=== PATIENT | female | born 1970 | race Caucasian/White ===

== ENCOUNTER → 2017-10-15 09:18 | Outpatient (CLI) | payer BC, SELFPAY ==
--- NOTE | 2017-10-15 09:21 | MM_ITS ---
Bilateral screening mammogram: CAD mammography screening History: There is no personal or family history of breast cancer Today's studies are compared to digital mammograms 10/05/2016 and 09/23/2015 Findings: There is a markedly dense and heterogenic parenchymal pattern lessening the sensitivity of mammography. The findings are bilateral and symmetrical. There is no suspicious lesion in either breast and no suspicious microcalcifications. Impression: Stable mammogram. No evidence of malignancy. Recommend routine yearly screening follow-up. BI-RADS CATEGORY: 1 Negative recommend 1 yearfollow-up (A letter has been sent to the patient regarding the results of the study.)
== END ==
PROVIDERS: Family Provider Family Medicine; PCP Family Medicine; Visit Provider Obstetrics & Gynecology
DX: Z12.31 Encounter for screening mammogram for malignant neoplasm of breast (principal)
CPT/HCPCS: 77067

== ENCOUNTER → 2017-11-19 09:36 | Outpatient (CLI) | payer BC, SELFPAY ==
[2017-11-19 10:49] LABS: Thyroid Stimulating Hormone 0.83 uIU/ml (0.358-3.740)
[2017-11-20 18:31] LABS: Vitamin B12 1001 pg/mL (232-1245)
== END ==
PROVIDERS: Visit Provider Physician Assistant
DX: E53.8 Deficiency of other specified B group vitamins (principal); E03.9 Hypothyroidism, unspecified
CPT/HCPCS: 36415; 82607; 84443

== ENCOUNTER → 2018-07-20 09:42 | Outpatient (CLI) | payer BC, SELFPAY ==
--- NOTE | 2018-07-20 09:46 | XR_ITS ---
XR hand LT min 3V HISTORY: Left fifth finger pain. 4 weeks ITS.REASON: LEFT FINGER PAIN ORDERING PHYSICIAN: PRAKASH Alvarado PATIENT AGE: 48 years COMPARISON: [None TECHNIQUE: PA, Oblique and Lateral Hand FINDINGS: Left hand appears intact with no prominent findings. No fracture or dislocation. No lytic or blastic change. There is normal mineralization.. There is some early narrowing and hypertrophic changes at the IP joint of thumb, mild sharpening at the margins of the joint with some early hypertrophic changes anteriorly Otherwise the DIP and PIP joints appear to be well maintained specifically here at the fifth finger we see no remarkable arthritic changes. There may be some minor soft tissue swelling questioned evident. Fifth metacarpal is intact with benign bone island at head of fifth metacarpal. The metacarpal and wrist on the views unremarkable. IMPRESSION: ----- No fracture nor acute findings at left hand. . Specifically Fifth finger appears intact & unremarkable Only note some very early degenerative arthritic changes at the joint thumb
== END ==
PROVIDERS: PCP Family Medicine; Visit Provider Physician Assistant
DX: M79.645 Pain in left finger(s) (principal)
CPT/HCPCS: 73130

== ENCOUNTER → 2018-11-21 09:18 | Outpatient (CLI) | payer BC, SELFPAY ==
--- NOTE | 2018-11-21 09:22 | MM_ITS ---
MM Dig screening mamm BI w/CAD ORDERING PHYSICIAN : Luis Fernando Sanchez MD PATIENT AGE: 48 years GENDER: Female COMPARISON: Multiple prior digital mammograms utilized.: October 2017, September 2016, 2015, 2014, 2013 INDICATION: ITS.Routine: screening. No hormones. No new complaints. Previous breast biopsy, 2015 = benign fibroadenoma Noncontributory family history TECHNIQUE: Standard CC and MLO images were obtained. R2 CAD reviewed. FINDINGS: Dense breast bilaterally decreased sensitivity of mammography . Dense somewhat nodular heterogeneous appearance again observed, similar to previous study. I see no dominant or suspicious mass. No suspicious calcifications. No new areas of significant concern. RIGHT BREAST: Area Labeled A: On today's MLO view there is slightly denser area at the superior right breast spanning a 12 x 1 x 15 mm on MLO view. On cc view I suspect there and the 9-11 o'clock position.Suggest the patient return for spot views of this area as well as ultrasound right breast. This area labeled a thick Looking over Previous studies, would note 2014 ultrasound on which hypoechoic area was seen at this region-. Appears that there may been a Oct 2014 biopsy of this region by Dr. Liu, which confirmed a fibroadenoma. Nonetheless repeat survey at this point several years later suggested to further evaluate. Area Labeled B. : A few Small new nonspecific calcifications at site labeled B also noted. These are best seen on today's further lateral on standard cc view but can only other views..-& Likely reside at 9-10 o'clock position laterally right.-These will benefit from cc and 90 degree magnification views in the patient returns as well LEFT BREAST:No new areas significant concern. Follow-up in one year recommended. IMPRESSION: 1. Dense breast bilaterally decreased sensitivity mammography. 2. Right breast: .... Area A: Slight increased density superior right breast on today's mammogram, could merely reflect summation shadow; but with overall appearance suggests patient return for Spot View & Ultrasound. (Suspect the previously imaged/biopsied [id number], may account for this area relative greater density superior right breast, but would benefit from ultrasound follow-up .) .... Area B: Small nonspecific grouping of new calcifications at area labeled B.. More likely benign but slightly variable, would benefit from spot views in the patient returns 3. Left breast.: Stable. Follow-up in one year . BI-RADS Category: 0 Need Additional Imaging Evaluation RECOMMENDED FOLLOW-UP: IMM - IMMEDIATE FOLLOW-UP RECOMMENDED (A letter has been sent to the patient regarding results of the study.)
== END ==
PROVIDERS: PCP Family Medicine; Visit Provider Obstetrics & Gynecology
DX: Z12.31 Encounter for screening mammogram for malignant neoplasm of breast (principal)
CPT/HCPCS: 77067

== ENCOUNTER → 2018-11-25 12:55 | Outpatient (CLI) | payer BC, SELFPAY ==
--- NOTE | 2018-11-25 13:02 | US_ITS ---
US thyroid HISTORY: Follow-up thyroid nodules ITS.REASON: MULTINODULAR GOITER ORDERING PHYSICIAN: PRAKASH Alvarado PATIENT AGE: 48 years Comparison: 05/09/2015 FINDINGS: The isthmus is enlarged measuring 5 mm in thickness The right lobe is 4.7 x 1.4 x 2.3 cm with heterogeneous echogenicity. Hypoechoic nodule is present in the upper pole at 10 mm unchanged. Hypoechoic nodule is present in the mid polar region posteriorly at 11 x 7 mm previously 18 x 7 mm. There is an isoechoic nodule in the mid polar region at 8 mm unchanged. The left lobe is 4.8 x 1.5 x 1.6 cm showing heterogeneous echogenicity with a multinodular configuration. There is diffuse heterogeneous echogenicity. It is difficult to ascertain definite nodules. There is a questionable 12 mm nodule in the lower pole probably not significant changed considering the difference in scanning technique. IMPRESSION: No change multinodular goiter
== END ==
PROVIDERS: PCP Physician Assistant; Visit Provider Physician Assistant
DX: E04.2 Nontoxic multinodular goiter (principal)
CPT/HCPCS: 76536

== ENCOUNTER → 2018-12-07 14:36 | Outpatient (CLI) | payer BC, SELFPAY ==
--- NOTE | 2018-12-07 14:37 | MM_ITS ---
MM Dig mamm DX unilat RT CAD, US breast RT complete Ordering Physician: Luis Fernando Sanchez MD Patient Age: 48 years Female COMPARISON: November 21, 2018, screening mammogram. October 2017, September 2016 2016 INDICATION: Further evaluation of small calcifications upper-outer quadrant as well as accentuated density/nodularity superior right breast on recent screening mammogram DIAGNOSTIC MAMMOGRAM, WITH SPOT VIEWS. CC and MLO spot views the nodule labeled A; also spot magnification CC and 90 degree views of small calcifications upper-outer quadrant at area labeled B. Small cluster calcifications is seen to slightly better advantage, 9 o'clock position right breast.... Minimal small grouping but magnification views demonstrate Slight variability of forms and slight progression since prior study. Favor more likely benign calcifications, but stereotactic biopsy origin. Suggested since it developed since last year. A reasonable alternative if preferred by the patient is a follow-up study in 6 months. ULTRASOUND RIGHT BREAST. Including axillary survey Ultrasound entire breast including axillary survey was performed. COMPARISON is made to previous ultrasound from 2015. 12:00: Focal ovoid hypoechoic area at 12:00 again identified. However on today's study, favor it is a debris-filled cyst as there is back wall enhancement and through transmission better delineated today.. This measures 5.7 mm it appears to be a benign ultrasound feature that can be followed safely. 9:00 small hypoechoic ovoid area this area also measures up to 5.7 mm maximally. Benign appearance likely cluster of apocrine cysts. Scattered benign axillary lymph nodes. IMPRESSION: 1. Magnification spot views right breast: Small grouping of variable calcifications has developed at upper-outer quadrant right breast. More likely benign features such as adenosis but stereotactic biopsy recommended further evaluate. Reasonable alternatively approach would be 6 month follow-up mammogram 2. . The area relative density superior right breast again on right mammogram less evident but warrants follow-up in this dense breasts. Likely dense fibroglandular elements. Suggest right mammogram and right breast ultrasound 6 months to further confirm stability. This area of dense breast tissue is somewhat difficult to evaluate & would benefit from follow-up. 3. Today's right breast Ultrasound reveals no suspicious densities. Small benign-appearing areas on ultrasound at 12:00 and 9:00 noted and not of concern . BI-RADS Category: 4 minimal Suspicious Abnormality-Biopsy Considered RECOMMENDED FOLLOW-UP: BIO - BIOPSY RECOMMENDED Stereotactic biopsy of warranted. 6 month follow-up here would be reasonable alternative A letter has been sent to the patient regarding results of the study.)
== END ==
PROVIDERS: PCP Family Medicine; Visit Provider Obstetrics & Gynecology
DX: R92.8 Other abnormal and inconclusive findings on diagnostic imaging of breast (principal)
CPT/HCPCS: 76641; 77065

== ENCOUNTER → 2018-12-28 09:26 | Outpatient (CLI) | payer BC, SELFPAY ==
--- NOTE | 2018-12-28 09:29 | MM_ITS ---
MM stereotactic loc RT, MM clip placement RT Digital spot compression, ORDERING PHYSICIAN: Luis Fernando Sanchez MD PATIENT AGE: 48 years Comparison: 12/07/2018 INDICATION for exam: Abnormal mammogram with suspicious microcalcifications. PROCEDURE: The patient was given 1 mg of Xanax, Lortab 5 mg, and analgesia and minor sedation. The patient was placed on the stereotactic table and the abnormality was localized in the most appropriate projection. Initially, the calcifications were localized in the craniocaudal projection. The breast was prepped in the routine manner, with sterile prep and the overlying skin anesthetized. A 3 to 4 mm skin incision was performed and the 9 gauge sorus vacuum-assisted core biopsy needle was advanced to the region of the calcification. Pre- and post fire images were obtained. After adequate positioning relative to the calcifications was ensured, multiple biopsies were obtained in the region of the calcifications specifically. Despite multiple biopsies and repositioning of the needle, no calcifications were evident within the tissue specimen. This was labeled specimen A and sent for pathological analysis. The patient needed to go to the bathroom and was then allowed to get up and go to the bathroom and then the calcifications were localized in the lateral projection. The breast was prepped in the routine manner, with sterile prep and the overlying skin anesthetized. A 3 to 4 mm skin incision was performed and the 9 gauge sorus vacuum-assisted core biopsy needle was advanced to the region of the calcification. Pre- and post fire images were obtained. After adequate positioning relative to the calcifications was ensured, multiple biopsies were obtained in the region of the calcifications specifically. This time there were calcifications noted within the tissue specimen. This specimen was labeled as B The core biopsies obtained were sent for specimen mammography. After the calcifications were indeed identified on the second positioning specimen mammogram, the procedure was terminated. The patient tolerated the procedure well without complications. Specimen was sent for pathologic analysis. A tiny titanium nonferromagnetic MicroMark was positioned through the mammotome needle into the biopsy site. Postbiopsy mammogram: Previously noted calcifications are no longer apparent and have been removed. A clip is present at the expected location at 3:00 with post biopsy changes at this region. Pathology: Please see pathologist report for details. Specimen A: Isolated atypical lobular hyperplasia with fibrocystic change. 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 Calcifications were not identified were definitely present on the tissue specimen and may have been lost during processing. IMPRESSION: Successful stereotactic directed biopsy of the right breast demonstrating lobular carcinoma in situ and atypical lobular hyperplasia. 2 different specimens were obtained however, they're both felt to be in the same area one demonstrating calcifications in the other not demonstrating calcifications on the specimen radiograph. Recommendations: Surgical consult
== END ==
PROVIDERS: PCP Family Medicine; Visit Provider Obstetrics & Gynecology
DX: R92.8 Other abnormal and inconclusive findings on diagnostic imaging of breast (principal); C50.911 Malignant neoplasm of unspecified site of right female breast
CPT/HCPCS: 19081; 77065

== ENCOUNTER → 2019-02-02 14:10 | Outpatient (CLI) | payer BC, SELFPAY ==
[2019-02-02 15:57] LABS: Thyroid Stimulating Hormone 6.75 uIU/ml (0.358-3.740)
== END ==
PROVIDERS: Visit Provider Physician Assistant
DX: E03.9 Hypothyroidism, unspecified (principal)
CPT/HCPCS: 36415; 84439; 84443

== ENCOUNTER → 2019-07-26 13:55 | Outpatient (CLI) | payer BC, SELFPAY ==
--- NOTE | 2019-07-26 13:57 | US_ITS ---
PROCEDURE: US TRANSVAGINAL CLINICAL INDICATION: PELVIC PAIN Left-sided pelvic pain COMPARISON: PTV US PELVIS-TRANSVAGINAL ONLY from 07/05/2013 FINDINGS: Status post hysterectomy. The right ovary is 1.6 x 1.9 cm and contains a 1.3 cm cyst. The left ovary is 3.2 x 1.9 cm and contains a 1.3 cm cyst. The vaginal cuff has an unremarkable appearance. No cul-de-sac fluid. IMPRESSION: Prior hysterectomy with small bilateral ovarian cysts Dictated by: Fer Liu MD 07/26/2019 19:32 Electronically signed by Fer Liu MD in [place] 07/26/2019 19:32
== END ==
PROVIDERS: PCP Family Medicine; Visit Provider Physician Assistant
DX: R10.2 Pelvic and perineal pain (principal)
CPT/HCPCS: 76830

== ENCOUNTER → 2021-05-22 08:35 | Outpatient (CLI) | payer BC, SELFPAY | PROVIDERS: PCP Family Medicine; Visit Provider Nurse Practitioner | DX: Z11.52 Encounter for screening for COVID-19 (principal) | CPT/HCPCS: C9803; U0003; U0005 ==

== ENCOUNTER → 2021-06-25 13:32 | Outpatient (CLI) | payer BC, SELFPAY ==
--- NOTE | 2021-06-25 13:35 | US_ITS ---
PROCEDURE: US THYROID CLINICAL INDICATION: THYROID NODULE COMPARISON: US THY US thyroid from 11/25/2018 FINDINGS: Right lobe: 4.5 x 2 x 1.3 cm. There is diffuse heterogeneous echogenicity. 12 x 8 mm heterogeneous nodule in the upper pole unchanged. In the lower pole there is a 7 mm slightly hyperechoic nodule. This is unchanged. Left lobe: 3.9 x 1.3 x 1.5 cm. The diffuse heterogeneous echogenicity. No discrete nodule delineated. Questionable 9 mm nodule in the mid polar region. Isthmus: Thickened at 4 mm. Additional findings: There is diffuse heterogeneous echogenicity of the thyroid gland making subtle nodule demonstration difficult. IMPRESSION: Overall no change diffuse heterogeneous echogenicity of the thyroid with questionable bilateral nodules not significantly changed. Dictated by: Fer Liu MD 06/25/2021 19:03 Fer Liu MD in [place] 06/25/2021 19:03
== END ==
PROVIDERS: PCP Physician Assistant; Visit Provider Physician Assistant
DX: E04.1 Nontoxic single thyroid nodule (principal)
CPT/HCPCS: 76536

== ENCOUNTER 2021-09-11 10:05 | Emergency (ER) | payer BC, SELFPAY ==
[2021-09-11 10:26] VITALS: BP 141/87; PULSE 82; RESP 18; TEMP 36.7; O2SAT 99; BMI 33.7
--- NOTE | 2021-09-11 11:13 | HMH.EDUTC ---
[facility] – [place], [place] Disposition Clinical Impression: Exposure to COVID-19 virus Sinusitis Qualifiers: Sinusitis location: unspecified location Chronicity: acute Recurrence: non-recurrent Qualified Code(s): J01.90 - Acute sinusitis, unspecified Disposition: Home, Self-Care Condition on Discharge: Good Instructions: DI for Sinusitis, DI for COVID-19 (Suspected or Confirmed ), Preventing the Spread of Coronavirus Discharge Instructions Additional Instructions: Drink plenty of fluids. Take tylenol or ibuprofen for pain or fever. Take the medications as directed. Follow up with your regular doctor. GO TO THE ER FOR ANY WORSENING SYMPTOMS Quarantine until you know the results of your covid-19 test. If it is positive, the health department should call you and give you further instructions about your length of Quarantine and other things. Notify your school or workplace of your results and follow their instructions regarding return to work/school. The cough medication (promethazine dm) will make you drowsy, so don't drive or operate heavy machinery after taking it. You probably won't need this unless you actually have covid-19. Prescriptions: Ondansetron [Zofran 4mg ODT] 4 mg PO Q8HP PRN #20 tab PRN Reason: Nausea Transmission Status: Received by [id number] Ondansetron [Zofran 4mg ODT] 4 mg PO Q8HP PRN #20 tab PRN Reason: Nausea Transmission Status: Received by [id number] methylPREDNISolone [Medrol] 4 mg PO DIRECTED 6 Days #21 packet Transmission Status: Received by [id number] Azithromycin [Z-Parker 250mg Tab*] 250 mg PO UD DOSE PK #6 tab Transmission Status: Received by [id number] Referrals: Teddy Cao MD [Primary Care Provider] - Time of Disposition: 11:57 Medical Decision Making - Medical Records Medical records reviewed: No: I reviewed the patient's medical records. - Erasmo Inquiry Pt receiving controlled substance: No Vital Signs: 09/11/21 10:26 09/11/21 12:04 Temperature 98.1 F 98.1 F Temperature Source Oral Pulse Rate 82 Pulse Rate [Left] 82 Respiratory Rate 18 18 Blood Pressure 141/87 H Blood Pressure [Right Arm] 141/87 H Blood Pressure Mean [Right Arm] 105 02 Sat by Pulse Oximetry 99 - Lab Data Lab results reviewed: Yes: I reviewed the patient's lab results. Lab Results 09/11/21 10:29: Strep Scn Rapid Clinic Positive A Orders (Tests/Meds): ED MEDICATIONS Discontinued Medications Generic Name Dose Route Start Last Admin Trade Name Roberta PRN Reason Stop Dose Admin Penicillin G Benzathine 1,200,000 unit 09/11/21 12:01 09/11/21 12:03 Penicillin G Benzathine 1,200,000 Units/2ml Syringe IM 09/11/21 12:02 1,200,000 unit ONCE ONE Administration [facility] – [place], [place] HPI - General Stated complaint: congestion Time Seen by Provider: 09/11/21 11:13 Mode of Arrival: Ambulatory Source of Information: Patient Limitations: No Limitations Description of Symptoms (Recalled from Triage Doc. by RN): pt c/o a sore throat and sinus congestion/drainage. tested pos. for covid two days ago. HEENT Symptoms (Recalled from RN notes): Yes Resp Symptoms (Recalled from RN notes): No Skin Symptoms (Recalled from RN notes): No MS Symptoms (Recalled from RN notes): No Functional Status (Recalled from RN notes): wnl - History of Present Illness Provider Complaint: She states that she has been having sinus congestion and nasal congestion for the past 2 days. She denies significant chest congestion. Her tested positive for covid-19 yesterday. She has been fully vaccinated against covid-19. She denies fever or chills or body aches so far. - Related Data Home Medications Medication Instructions Recorded Confirmed beclomethasone dipropionate 80 2 spray INTRANASAL DAILY 06/23/18 01/17/20 mcg/actuation nasal HFA inhaler levocetirizine 5 mg tablet 5 mg PO QHS 06/23/18 01/17/20 montelukast 10 mg tablet 10 mg
[2021-09-11 11:59] LABS: UTC Strep Screen (Rapid) Positive (Negative)
[2021-09-11 12:04] VITALS: BP 141/87; PULSE 82; RESP 18; TEMP 36.7
== END 2021-09-11 12:27 | disposition home or self-care (01) ==
PROVIDERS: Emergency Provider Nurse Practitioner Family; PCP Family Medicine
DX: J01.90 Acute sinusitis, unspecified (principal); U07.1 COVID-19; E03.9 Hypothyroidism, unspecified
CPT/HCPCS: 87880; 99203; C9803; G0463; J0561; U0003; U0005

== ENCOUNTER → 2021-09-15 09:05 | Outpatient (CLI) | payer BC, SELFPAY | PROVIDERS: PCP Family Medicine; Visit Provider Nurse Practitioner | DX: U07.1 COVID-19 (principal) | CPT/HCPCS: C9803; U0003; U0005 ==

== ENCOUNTER → 2021-09-17 10:33 | Outpatient (CLI) | payer BC, SELFPAY | PROVIDERS: Visit Provider Nurse Practitioner | DX: U07.1 COVID-19 (principal) | CPT/HCPCS: C9803; U0003; U0005 ==

== ENCOUNTER → 2023-09-02 14:11 | Outpatient (CLI) | payer BC, SELFPAY ==
--- NOTE | 2023-09-02 14:19 | XR_ITS ---
FINAL REPORT CLINICAL HISTORY: ABN FINDINGS ON SKULL/HEAD EXAM FINDINGS: SKULL 4 views were obtained. There is asymmetric scalp thickening near the vertex on the left. No underlying bony abnormality is seen. There is no radiopaque foreign body. No bony erosion is seen. IMPRESSION: Scalp thickening near the vertex on the left with no underlying bony abnormality. Reviewed, Interpreted and Dictated by Sean Hoffman MD Transcribed by Valerie Figueredo Authenticated and [facility]
== END ==
LOC: RAD 14:12
PROVIDERS: PCP Physician Assistant; Visit Provider Physician Assistant
DX: R68.89 Other general symptoms and signs (principal)
CPT/HCPCS: 70250

== ENCOUNTER 2023-09-08 16:35 | Outpatient (CLI) | payer BC, SELFPAY ==
[2023-09-08 18:44] LABS: Free T4 (Free Thyroxine) 1.34 ng/dl (0.78-2.19)
[2023-09-08 18:59] LABS: Thyroid Stimulating Hormone 5.71 uIU/mL (0.465-4.68)
== END 2023-09-08 23:59 ==
LOC: LAB 16:36
PROVIDERS: PCP Physician Assistant; Visit Provider Physician Assistant
DX: E03.9 Hypothyroidism, unspecified (principal)
CPT/HCPCS: 36415; 84439; 84443

== ENCOUNTER 2023-09-14 14:43 | Outpatient (CLI) | payer BC, SELFPAY ==
--- NOTE | 2023-09-14 14:51 | US_ITS ---
FINAL REPORT CLINICAL HISTORY: THYROID NODULE COMPARISON: 06/25/2021 FINDINGS: THYROID ULTRASOUND: The right lobe of the thyroid is of heterogeneous echotexture without discrete nodule seen. It measures 3.8 x 1.5 x 1.8 cm in size. The left lobe of the thyroid is also of heterogeneous echotexture without a discrete nodule. The left lobe of the thyroid measures 4.1 x 1.5 x 1.5 cm in size. The isthmus measures 6 mm in size. IMPRESSION: Diffusely heterogeneous thyroid gland bilaterally, with discrete nodules difficult to identify. The overall appearance is not significantly changed since the prior ultrasound of June 2021. Reviewed, Interpreted and Dictated by Russ Haas III, MD Transcribed by Char Garay Authenticated and [facility]
== END 2023-09-14 23:59 ==
PROVIDERS: PCP Physician Assistant; Visit Provider Physician Assistant
DX: E04.1 Nontoxic single thyroid nodule (principal)
CPT/HCPCS: 76536

== ENCOUNTER 2024-10-23 09:53 | Day surgery (SDC) | payer BC, SELFPAY ==
[2024-10-17 16:06] VITALS: BMI 33.9
[2024-10-23 10:11] VITALS: BP 137/77; PULSE 72; RESP 18; TEMP 36.5; O2SAT 98
[2024-10-23] MEDS: LACTATED RINGERS 1000ML 1,000 ML 50 ML IV (10:24)
--- NOTE | 2024-10-23 11:19 | P.HP_ITS ---
History of Present Illness *Admission Date: 10/23/24 *Reason for visit:: GERD/dysphagia and surveillance (personal history of polyps) *History of present illness: Mrs. Martel is a 54-year-old female who is here for diagnostic EGD secondary to chronic GERD with some dysphagia and colonoscopy for surveillance (secondary to personal history of adenomatous polyps) and family history. The examination is deemed medically necessary for EGD and colonoscopy. The patient has been seen, interviewed and examined prior to the procedure by both myself and the anesthesia provider. [facility] Disclaimer: The information contained in this section may have been updated after the patient was seen, as this information can be updated by other users. Medical History (Updated 10/23/24 @ 11:30 by Brendan Elder II, MD) Breast cancer Surgical History (Updated 10/23/24 @ 10:17 by Xuan Vidal RN) History of partial hysterectomy History of esophagogastroduodenoscopy (EGD) History of colonoscopy H/O lumpectomy Family History (Updated 10/23/24 @ 10:15 by Xuan Vidal RN) Other Colon cancer Social History (Updated 10/23/24 @ 10:17 by Xuan Vidal RN) Smoking Status: Never smoker alcohol intake: never substance use type: denies use current occupational status: employed Travel in the last 8 weeks: None caffeine: No Have you lived/traveled outside [place] in past 30 days?: No Contact w/someone who lives/traveled outside US past 30 days?: No Exposure to someone with infectious disease in past 14 days?: No Do you have a fever (greater than 100.4 F or 38 C)?: No Have you tested positive for COVID-19: No Exposed to someone with COVID-19 in past 14 days?: Yes Do you have a sore throat?: No Do you have a cough?: No Do you have any weakness?: No Are you experiencing any nausea/vomitting?: No Do you have any diarrhea?: No Are you experiencing any unusual bleeding?: No Do you have any muscle aches/pain?: No Do you have any abdominal pain?: No Are you experiencing loss of taste or smell?: No Other Medical History Have you received the Pneumonia Vaccine: No Review of Systems Review of Systems Review of systems (narrative): Negative *Cardiovascular Comments: Negative *Gastrointestinal Comments: Negative *Genitourinary Comments: Negative *Musculoskeletal Comments: Negative *Neurologic Comments: Negative Meds Home Medications and Allergies Home Medications ?Medication ?Instructions ?Recorded ?Confirmed ?Type levocetirizine 5 mg tablet 5 mg PO QHS 06/23/18 10/23/24 History (Allergy Relief (levocetirizine)) montelukast 10 mg tablet 10 mg PO QPM 06/23/18 10/23/24 History cholecalciferol (vitamin D3) 625 25,000 unit PO QWEEK 05/09/19 10/23/24 History mcg (25,000 unit) capsule vitamin B complex (B 1 tab PO DAILY 05/09/19 10/23/24 History Complex-Vitamin B12 tablet) levothyroxine 112 mcg tablet 112 mcg PO DAILY 08/25/19 10/23/24 History fluticasone propionate 50 50 mcg intranasal NEEDED PRN 08/17/24 10/23/24 History mcg/actuation nasal allergies spray,suspension omeprazole 40 mg capsule,delayed 40 mg PO ONCE 08/17/24 10/23/24 History release triamterene 37.5 1 tab PO DAILY 08/17/24 10/23/24 History mg-hydrochlorothiazide 25 mg tablet [id number] 140 gram-sod sulfate 9 500 ml PO .COMPLEX colonscopy #3 ea 10/12/24 10/23/24 Rx gram-NaCl 5.2gram-KCl-C oral pwdr packs (Plenvu) New Prescriptions to Start Prescriptions: Allergies Allergy/AdvReac Type Severity Reaction Status Date / Time No Known Allergies Allergy Verified 10/23/24 10:09 Exam Data for Last 24 hours Vital signs and Labs for Last 24 Hours: Temp Pulse Resp BP Pulse Ox O2 Del Method 97.7 F 72 18 137/77 98 Room Air 10/23/24 10:11 10/23/24 10:11 10/23/24 10:11 10/23/24 10:11 10/23/24 10:11 10/23/24 10:11 *Routine HEENT Exam Head: Present normocephalic Eye: Present EOMI and PERRL ENT: Present mucous membranes moist *Routine Neck Exam Neck: Present supple *Routine Respiratory Exam Respiratory: Present CTA bilaterally *Routine Cardiovascular Exam Cardiovascular: Present RRR *Routine Abdominal Exam Abdominal: Present soft and normoactive bowel sounds; Absent tenderness *Routine Rectal Exam Rectal:: deferred *Routine Genitalia Exam Genitalia:: deferred *Routine Extremities Exam Extremities: Absent cyanosis, clubbing or edema *Routine Skin Exam Skin: Present warm; Absent rash *Routine Neurological Exam Neurological: Present alert and oriented X3 Assessment and Plan *Assessment and plan (1) Heartburn: Status: Acute Category: Medical Code(s): R12 - Heartburn (2) GERD (gastroesophageal reflux disease): Status: Acute Category: Medical Code(s): K21.9 - Gastro-esophageal reflux disease without esophagitis (3) Dysphagia: Status: Acute Category: Medical Code(s): R13.10 - Dysphagia, unspecified (4) Personal history of adenomatous and serrated colon polyps: Status: Acute Category: Medical Code(s): Z86.0101 - Personal history of adenomatous and serrated colon polyps (5) Family history of colon cancer: Status: Acute Category: Medical Code(s): Z80.0 - Family history of malignant neoplasm of digestive organs Plan A/P: 1. Heartburn, GERD and dysphagia for upper endoscopy and surveillance secondary to personal history of adenomatous polyps for colonoscopy is the preprocedural diagnosis. The patient will be anesthetized/sedated using MAC sedation. The patient has been seen and examined. Cardiac and lung assessment prior to the examination is stable. Proceed with planned EGD and colonoscopy
[2024-10-23 11:23] VITALS: O2SAT 100
--- NOTE | 2024-10-23 11:32 | HMH.PROCNOTE ---
[facility] Procedure Note Date: 10/23/24 Time: 11:37 Procedure Note:: Upper Endoscopy Procedure Report: Esophagogastroduodenoscopy with cold biopsies and TTS balloon dilation Endoscopost: Brendan Elder II, MD Referring Physician: Elder Cao MD Date of Procedure: October 23, 2024 Equipment: Olympus GIF 190 standard upper endoscope Sedation: MAC sedation Indications: Mrs. Martel is a 54-year-old female with chronic GERD well-controlled with omeprazole daily. The patient has had this for years and if she discontinues omeprazole she will have recurrence or resurgence of the heartburn and reflux. This can awaken her at nighttime. She does have a moderate amount of belching, bloating and gassiness. She does report intermittent dysphagia. She had an EGD years ago. Procedure: Prior to the procedure, a history and physical exam was performed, and patient's medications and allergies were reviewed. The risks, benefits and alternatives of the sedation and procedure were discussed with the patient. All questions were answered and informed consent was obtained. The patient was brought to the procedure room. Patient identification and proposed procedure were verified by the physician and the nurse. The patient was placed in a left lateral decubitus position and the scope was passed under direct vision. Throughout the procedure, the patient's blood pressure, pulse, and oxygen saturations were monitored continuously. The upper GI endoscopy was accomplished without difficulty. The patient tolerated the procedure well. Findings: The scope was passed directly into the upper esophagus and advanced to the third portion of the duodenum. The post bulbar duodenum, ampulla and duodenal bulb were normal with normal mucosa and conniventes. The scope was withdrawn through a normal duodenal bulb and pylorus into the stomach. There was some linear reactive gastropathy of the antrum and body of the stomach. The remainder of the fundus of the stomach was normal. Upon retroflexion there was a small 2 cm hiatal hernia. Biopsies were taken from the antrum. The scope was then withdrawn into the esophagus. There was a single distal superficial erosion. There was no evidence of Rosenberg's esophagus. Biopsies were taken at the GE junction. There was no corrugation, peptic stricture, fibrous ring or furrowing. There were tertiary contractions and evidence of moderate esophageal dysmotility. The entire esophagus was dilated to 60 Pakistani/20 mm with a TTS hydrostatic balloon. There was mild resistance at the cricopharyngeus. The remainder of the esophageal mucosa was normal. Impression: 1. Grade A (LA classification) reflux esophagitis with small 2 cm hiatal hernia and moderate esophageal dysmotility 2. Mild linear reactive gastropathy of antrum and body Plan: I will follow-up the biopsies. The patient does have good control of symptoms on omeprazole. We will discuss additional treatment options. I suspect that most of her symptoms of reflux are related to and driven by lower intestinal gas pressure gradients/high gas pressure buildup resulting in backflow of bile and peptic fluid from the duodenum into the stomach (duodenal reflux). This gas production (carbon dioxide, hydrogen, methane, etc.) from the lower intestinal tract is the byproduct of colonic bacterial fermentation. This colonic fermentation occurs when there is more carbohydrate (dietary starches, sugars and high residue plant fiber) substrate that does not get digested (in the middle or small intestine) or occurs when there is colonic fecal buildup and colonic bacterial overgrowth. This indeed leads to bloating and the gas pressure buildup with gas pressure gradients that do drive backflow and dyspepsia.
--- NOTE | 2024-10-23 11:36 | P.PNANES_ITS ---
[facility] Disclaimer: The information contained in this section may have been updated after the patient was seen, as this information can be updated by other users. Medical History (Updated 10/23/24 @ 11:30 by Brendan Elder II, MD) Breast cancer Surgical History (Updated 10/23/24 @ 10:17 by Xuan Vidal, YULIANA) History of partial hysterectomy History of esophagogastroduodenoscopy (EGD) History of colonoscopy H/O lumpectomy Family History (Updated 10/23/24 @ 10:15 by Xuan Vidal, YULIANA) Other Colon cancer Social History (Updated 10/23/24 @ 10:17 by Xuan Vidal RN) Smoking Status: Never smoker alcohol intake: never substance use type: denies use current occupational status: employed Travel in the last 8 weeks: None caffeine: No Have you lived/traveled outside [place] in past 30 days?: No Contact w/someone who lives/traveled outside [place] past 30 days?: No Exposure to someone with infectious disease in past 14 days?: No Do you have a fever (greater than 100.4 F or 38 C)?: No Have you tested positive for COVID-19: No Exposed to someone with COVID-19 in past 14 days?: Yes Do you have a sore throat?: No Do you have a cough?: No Do you have any weakness?: No Are you experiencing any nausea/vomitting?: No Do you have any diarrhea?: No Are you experiencing any unusual bleeding?: No Do you have any muscle aches/pain?: No Do you have any abdominal pain?: No Are you experiencing loss of taste or smell?: No [facility] Anesthesia Checklist Patient Identification Patient Identification: Verbal (Name & ) Structural Data Admitted From: Home Planned Operative Procedure/s: egd/colonoscopy NPO Status Verified Time NPO: 00:00 Airway Assessment Mallampati Score:: Class II C-Spine Mobility Assessed: Yes TMJ Mobility Assessed: Yes Dentition: Good Dentition Neurological Assessment Level of Consciousness: Awake, Alert and Appropriate Anesthesia Plan Anesthesia Risk discussed: Yes Anesthesia Plan: Verified ASA Class: II Anesthesia Type: MAC
--- NOTE | 2024-10-23 11:41 | HMH.PROCNOTE ---
[facility] Procedure Note Date: 10/23/24 Time: 11:55 Procedure Note:: Colonoscopy Procedure Report: Colonoscopy with cold snare polypectomy Endoscopist: Brendan Elder II, MD Referring physician: Elder Cao MD Date of Procedure: October 23, 2024 Equipment: Olympus 190 variable stiffness pediatric colonoscope Sedation: MAC sedation Indication: Mrs. Martel is a 54-year-old female who is here for follow-up surveillance colonoscopy. She had a colonoscopy over 5 years ago (report not available) but thinks that she had polyps removed. Her grandmother had colon cancer around the age of 80 and her first cousin had colon cancer diagnosed at the age of 33. She reports regular bowel function but does have some incomplete bowel evacuation and bloating. She reports no rectal bleeding, abdominal pain or weight loss. Procedure: Prior to the procedure, a history and physical exam was performed, and patient's medications and allergies were reviewed. The risks, benefits and alternatives of the sedation and procedure were discussed with the patient. All questions were answered and informed consent was obtained. The patient was brought to the procedure room. Patient identification and proposed procedure were verified by the physician and the nurse. The patient was placed in a left lateral decubitus position and the scope was passed under direct vision. Throughout the procedure, the patient's blood pressure, pulse, and oxygen saturations were monitored continuously. The colonoscopy was accomplished without difficulty. The patient tolerated the procedure well. Findings: On digital rectal examination there was normal rectal tone. There were no external hemorrhoids. The colonoscope was introduced through the anal canal to the rectum and advanced to the cecum. The ileocecal valve and appendiceal orifice were identified. The scope was advanced a short distance into the ileum which appeared grossly normal. The scope was then withdrawn into the colon. There was a single 3 to 4 mm polyp in the transverse colon removed via cold snare polypectomy. The remaining cecum, ascending, transverse, descending, sigmoid and rectum were grossly normal. There were no other mucosal abnormalities identified. Upon retroflexion within the rectum there were grade 1-2 internal hemorrhoids. The preparation was excellent throughout with [place] Preparation Score of 9. The cecal time was 12 minutes. Impression: 1. Diminutive 3 to 4 mm transverse colon polyp 2. Grade 1-2 internal hemorrhoids Plan: I will follow-up the polyp histology and recommend repeat surveillance colonoscopy again in 7 years. I would encourage a fiber bowel regimen on a long-term daily maintenance basis.
[2024-10-23 11:58] VITALS: BP 107/66; PULSE 95; RESP 18; O2SAT 96
[2024-10-23 12:08] VITALS: BP 106/68; PULSE 88; RESP 20; O2SAT 97
[2024-10-23 12:18] VITALS: BP 100/84; PULSE 92; RESP 20; O2SAT 98
[2024-10-23 12:28] VITALS: BP 120/76; PULSE 86; RESP 18; O2SAT 98
== END 2024-10-23 12:45 | disposition home or self-care (01) ==
PROVIDERS: PCP Family Medicine; Visit Provider Internal Medicine Gastroenterology
PROC: 0DJ08ZZ Inspection of Upper Intestinal Tract, Via Natural or Artificial Opening Endoscopic (ICD-10-PCS; CPT 45378; principal; 2024-10-23 11:30)
DX: R12 Heartburn (principal); R13.10 Dysphagia, unspecified; Z86.0101 Personal history of adenomatous and serrated colon polyps; Z80.0 Family history of malignant neoplasm of digestive organs; R14.0 Abdominal distension (gaseous); K31.9 Disease of stomach and duodenum, unspecified; K44.9 Diaphragmatic hernia without obstruction or gangrene; K22.4 Dyskinesia of esophagus; K21.00 Gastro-esophageal reflux disease with esophagitis, without bleeding; K63.5 Polyp of colon; K64.8 Other hemorrhoids
CPT/HCPCS: 43239; 43249; 45385; C1726; J7120

== ENCOUNTER 2025-01-15 15:43 | Outpatient (CLI) | payer BC, SELFPAY ==
[2025-01-15 15:40] LABS: Coronavirus 19, PCR Not Detected (NotDetected); Influenza A, PCR Not Detected (NotDetected); Influenza B, PCR Not Detected (NotDetected)
--- NOTE | 2025-01-15 15:47 | XR_ITS ---
FINAL REPORT TECHNIQUE: Chest PA & Lateral CLINICAL HISTORY: Cough and congestion x 4 days COMPARISON: None FINDINGS: 2 views of the chest were performed. The heart size is normal. The mediastinum is within normal limits. There is streaky infiltrate in the medial right base probably due to acute pneumonia. The left lung is clear. There are no pleural effusions. There is no pneumothorax. The bony thorax appears intact. IMPRESSION: Streaky infiltrate medial right base probably due to acute pneumonia. Reviewed, Interpreted and Dictated by Sean Hoffman MD Transcribed by Ana Chinchilla Authenticated and [facility]
== END 2025-01-15 23:59 | disposition home or self-care (01) ==
LOC: RAD 15:44
PROVIDERS: PCP Family Medicine; Visit Provider Student in an Organized Health Care Education/Training Program
DX: R91.8 Other nonspecific abnormal finding of lung field (principal); R05.9 Cough, unspecified
CPT/HCPCS: 71046; 87636